=== PATIENT | female | born 1995 | race Caucasian/White ===

== ENCOUNTER → 2020-06-22 10:38 | Outpatient (CLI) | payer BC, SELFPAY ==
[2014-05-06 07:28] VITALS: BMI 22.9
[2020-06-22 12:43] LABS: AST(SGOT) 17 U/L (15-37); Alanine Aminotransfer ALT/SGPT 28 U/L (13-56); Cholesterol 194 mg/dL (200); High Density Lipoprotein 55 mg/dL; Triglycerides 110 mg/dL; Very Low Density Lipoprotein 22 mg/dL (5-40)
[2020-06-22 12:48] LABS: hCG Titer Quant., Serum < 1 mIU/mL (1-3)
== END ==
PROVIDERS: PCP Pediatrics; Referring Provider Dermatology; Visit Provider Dermatology
DX: L70.0 Acne vulgaris (principal); Z79.899 Other long term (current) drug therapy
CPT/HCPCS: 36415; 80061; 84450; 84460; 84702